=== PATIENT | male | born 1970 | race Caucasian/White ===

== ENCOUNTER 2017-01-05 10:43 | Emergency (ER) | payer OTHER ==
[~2017-01-05] VITALS: Ht 177.8 cm; Wt 77.0 kg
[2017-01-05 12:17] VITALS: BP 130/91
== END 2017-01-05 12:49 | disposition home or self-care (01) ==
LOC: EMS 10:47
DX: L02.413 Cutaneous abscess of right upper limb (principal); R03.0 Elevated blood-pressure reading, without diagnosis of hypertension; F12.90 Cannabis use, unspecified, uncomplicated; F17.210 Nicotine dependence, cigarettes, uncomplicated
CPT/HCPCS: 99281